=== PATIENT | male | born 1980 | race African-American/Black ===

== ENCOUNTER 2021-06-12 17:27 | Emergency (ER) | payer OTHER ==
[~2021-06-12] VITALS: Ht 167.6 cm; Wt 68.0 kg
[2021-06-12 18:49] VITALS: BP 114/80
== END 2021-06-12 18:50 | disposition home or self-care (01) ==
LOC: M.ERS 17:27
DX: U07.1 COVID-19 (principal)

== ENCOUNTER 2021-06-18 11:44 | Emergency (ER) | payer OTHER ==
[~2021-06-18] VITALS: Ht 167.6 cm; Wt 68.0 kg
[2021-06-18 13:30] VITALS: BP 112/70
== END 2021-06-18 13:32 | disposition home or self-care (01) ==
LOC: M.ERS 11:44
DX: U07.1 COVID-19 (principal)

== ENCOUNTER 2021-06-24 13:30 | Emergency (ER) | payer OTHER ==
[~2021-06-24] VITALS: Ht 167.6 cm; Wt 68.0 kg
[2021-06-24 14:25] VITALS: BP 129/76
== END 2021-06-24 14:25 | disposition home or self-care (01) ==
LOC: M.ERS 13:30
DX: Z20.822 Contact with and (suspected) exposure to COVID-19 (principal)